=== PATIENT | male | born 1965 | race Two or more races ===

== ENCOUNTER 2017-05-28 09:57 | Emergency (ER) | payer MEDICAID ==
[~2017-05-28] VITALS: Ht 167.6 cm; Wt 92.1 kg
[2017-05-28 11:21] VITALS: BP 157/99
[2017-05-28] MEDS ORDERED: KETOROLAC TROMETH 60MG/2ML VIAL IM ONE (12:15)
[2017-05-28] MEDS ORDERED: ONDANSETRON ODT 4 MG TAB PO ONE (12:15)
== END 2017-05-28 12:49 | disposition home or self-care (01) ==
LOC: EDSEX 09:57 → ER 09:57
DX: R11.2 Nausea with vomiting, unspecified (principal); R09.81 Nasal congestion; R05 Cough; R06.02 Shortness of breath
CPT/HCPCS: 71046; 81002; 96372; 99284; J1885; Q0162

== ENCOUNTER 2017-08-25 15:09 | Emergency (ER) | payer MEDICAID, OTHER | END 2017-08-25 15:30 | disposition left against medical advice (07) | LOC: ER 15:15 | DX: R07.89 Other chest pain (principal); Z53.21 Procedure and treatment not carried out due to patient leaving prior to being seen by health care provider ==

== ENCOUNTER 2017-08-25 17:58 | Emergency (ER) | payer MEDICAID ==
[~2017-08-25] VITALS: Ht 165.1 cm; Wt 92.1 kg
[2017-08-25 18:04] VITALS: BP 129/78
[2017-08-25 19:30] LABS: Basophils # (auto) 0.1 uL; Basophils % (auto) 0.8 % (0.0-2.0); Eosinophils # (auto) 0.2 uL; Eosinophils % (auto) 2.5 % (0.0-7.0); Hematocrit 44.7 % (41.0-53.0); Lymphocytes # (auto) 1.3 uL; Lymphocytes % (auto) 19.8 % (10.0-50.0); Mean Corpuscular Hgb Conc. 33.6 g/dL (32.0-36.0); Mean Corpuscular Volume 92.3 fL (80.0-100.0); Monocytes # (auto) 0.4 uL; Monocytes % (auto) 6.6 % (0.0-12.0); Neutrophils # (auto) 4.5 uL; Neutrophils % (auto) 70.3 % (37.0-80.0); Nucleated Red Blood Cells % 0.1 %; Platelet Count (auto) 247 10^3/uL (140-450); Red Blood Cells 4.84 10^6/uL (4.5-5.90); Red Cell Distribution Width 14.2 % (11.8-14.3); White Blood Cell 6.4 10^3/uL (4.4-10.8)
[2017-08-25 19:50] LABS: Alanine Aminotransferase 27 U/L (16-61); Albumin 3.6 g/dL (3.4-5.0); Alkaline Phosphatase 60 U/L (45-117); Anion Gap 6 (5-15); Aspartate Aminotransferase 20 U/L (15-37); BUN/Creatinine Ratio 7.7; Bilirubin, Total 0.3 mg/dL (0.2-1.0); Blood Urea Nitrogen 8 mg/dL (7-18); Calcium 8.3 mg/dL (8.5-10.1); Carbon Dioxide 28 mmol/L (21-32); Chloride 110 mmol/L (98-107); GFR African American 96 mL/min; GFR Non-African American 80 mL/min; Glucose 93 mg/dL (74-106); Magnesium 2.5 mg/dL (1.6-2.6); Potassium 3.5 mmol/L (3.5-5.1); Sodium 144 mmol/L (136-145); Total Protein 7.5 g/dL (6.4-8.2)
== END 2017-08-26 02:11 | disposition left against medical advice (07) ==
LOC: ER 17:59
DX: R06.02 Shortness of breath (principal); Z53.21 Procedure and treatment not carried out due to patient leaving prior to being seen by health care provider
CPT/HCPCS: 36415; 71046; 80053; 83735; 84484; 85025; 93005

== ENCOUNTER 2018-01-27 16:42 | Emergency (ER) | payer MEDICAID, OTHER ==
[~2018-01-27] VITALS: Ht 167.6 cm; Wt 93.0 kg
[2018-01-27 17:53] LABS: Basophils # (auto) 0 uL; Basophils % (auto) 0.6 % (0.0-2.0); Eosinophils # (auto) 0.2 uL; Hematocrit 50.3 % (41.0-53.0); Hemoglobin 17.3 g/dL (13.5-17.5); Lymphocytes # (auto) 1.3 uL; Lymphocytes % (auto) 17.9 % (10.0-50.0); Mean Corpuscular Hemoglobin 31.2 pg (28.0-32.0); Mean Corpuscular Hgb Conc. 34.4 g/dL (32.0-36.0); Mean Corpuscular Volume 90.8 fL (80.0-100.0); Monocytes # (auto) 0.5 uL; Monocytes % (auto) 7.3 % (0.0-12.0); Neutrophils # (auto) 5.3 uL; Neutrophils % (auto) 71.2 % (37.0-80.0); Nucleated Red Blood Cells % 0.1 %; Platelet Count (auto) 219 10^3/uL (140-450); Red Blood Cells 5.55 10^6/uL (4.5-5.90); Red Cell Distribution Width 14.6 % (11.8-14.3); White Blood Cell 7.4 10^3/uL (4.4-10.8)
[2018-01-27 18:20] LABS: Albumin 3.8 g/dL (3.4-5.0); BUN/Creatinine Ratio 9.1; Bilirubin, Total 0.6 mg/dL (0.2-1.0); Calcium 8.4 mg/dL (8.5-10.1); Potassium 3.8 mmol/L (3.5-5.1)
[2018-01-27 20:59] VITALS: BP 168/99
[2018-01-27] MEDS ORDERED: cefTRIAXone 1GM/10ml IVPUSH 10 ML IV ONE (21:00)
[2018-01-27] MEDS ORDERED: methylPREDNISolone SOD SUCC 125 MG/2 ML VL IV ONE (21:00)
[2018-01-27] MEDS: MAGNESIUM SULFATE 1GM/100ML 100 ML IV SCH ×2 (22:39→23:30)
== END 2018-01-27 23:34 | disposition home or self-care (01) ==
LOC: ER 16:42
DX: J06.9 Acute upper respiratory infection, unspecified (principal); R07.89 Other chest pain; Z87.891 Personal history of nicotine dependence
CPT/HCPCS: 36415; 71045; 80053; 85025; 96374; 96375; 99285; J0696; J2930; J3475

== ENCOUNTER 2018-02-25 09:33 | Emergency (ER) | payer OTHER ==
[~2018-02-25] VITALS: Ht 167.6 cm; Wt 94.3 kg
[2018-02-25 11:03] LABS: Urine Bacteria NONE SEEN /hpf (None Seen); Urine Blood Negative /uL (Negative); Urine Mucus FEW (None Seen); Urine Specific Gravity 1.025 (1.001-1.035); Urine WBC <1 /hpf (0 - 3)
[2018-02-25 13:14] VITALS: BP 162/100
== END 2018-02-25 13:16 | disposition home or self-care (01) ==
LOC: ER 09:33
DX: K29.70 Gastritis, unspecified, without bleeding (principal); K21.9 Gastro-esophageal reflux disease without esophagitis; Z87.891 Personal history of nicotine dependence
CPT/HCPCS: 74176; 81001; 93005